=== PATIENT | male | born 1990 | race Caucasian/White ===

== ENCOUNTER 2024-06-22 14:25 | Outpatient (CLI) | payer OTHER, SELFPAY ==
--- NOTE | ~2024-06-22 | MR_ITS ---
EXAMINATION: MR knee RT wo con DATE: 06/22/2024 16:14 INDICATION: Pain in right knee. TECHNIQUE: Magnetic resonance imaging (MRI) of the right knee was performed without intravenous contr ast. Sequences included axial PD-weighted FS FSE, coronal PD-weighted FSE and PD-weighted FS FSE, sag ittal PD-weighted FSE, and sagittal T2-weighted FS FSE. COMPARISON: Right knee radiographs 12/23/2023 FINDINGS: Medial compartment: Medial meniscus is normal. There is cartilage surface irregularity of femoral condyle and tibial cond yle. Lateral compartment: Lateral meniscus is normal. There is cartilage surface irregularity of tibial condyle. Femoral cartil age is normal. Patellofemoral compartment: The patellar cartilage is normal. Trochlear cartilage is normal. Ligaments and tendons: The anterior and posterior cruciate ligaments are normal. There are changes of prior sprains of media l collateral ligament and fibular collateral ligament characterized by thickening and increased signa l intensity proximally. There is mild patellar tendinopathy. Fluid: There is a small knee joint effusion. IMPRESSION: 1. Mild chondrosis of medial and lateral compartments. 2. Small knee joint effusion. Reviewed, dictated and finalized at location A. R TESTER
--- NOTE | ~2024-06-22 | MR_ITS ---
EXAMINATION: MR shoulder RT wo con DATE: 06/22/2024 16:14 INDICATION: Right shoulder pain. TECHNIQUE: Magnetic resonance imaging (MRI) of the right shoulder was performed without intravenous c ontrast. Sequences included axial PD-weighted FS FSE, coronal oblique PD-weighted FS FSE and T2-weigh payal FS FSE, and sagittal oblique T2-weighted FS FSE and T1-weighted FSE. COMPARISON: Right shoulder radiographs 12/12/2023 FINDINGS: Coracoacromial arch: The acromion undersurface is curved in morphology (type II). The acromioclavicular joint is normal. N o significant subacromial/subdeltoid bursitis. Rotator cuff: There is mild supraspinatus and infraspinatus tendinopathy. Teres minor tendon is normal. Subscapular is tendon is normal. There is no asymmetric fatty atrophy of the rotator cuff muscle bellies. Biceps tendon and glenoid labrum: Biceps tendon is in bicipital groove. Intra-articular biceps tendon is normal. The glenoid labrum is normal. Fluid: There is a small glenohumeral joint effusion. Bones/cartilage: The glenoid cartilage is normal. Humeral head cartilage is normal. IMPRESSION: 1. Mild rotator cuff tendinopathy. No tear. 2. Small glenohumeral joint effusion. Reviewed, dictated and finalized at location A. KFAST MANAGER
== END 2024-06-22 14:26 | disposition home or self-care (01) ==
PROVIDERS: PCP Nurse Practitioner Family; Visit Provider Nurse Practitioner Family
DX: M94.261 Chondromalacia, right knee (principal); M25.461 Effusion, right knee
CPT/HCPCS: 73221; 73721

== ENCOUNTER 2024-10-25 14:59 | Outpatient (CLI) | payer OTHER, SELFPAY ==
--- OUTSIDE RECORDS SUMMARY | 2024-10-25 17:27 | XMS_ITS | Clinical Summary ---
Author Organization [facility] Address [address] [place] [address] Care Team Providers Care Agronomist Name Role Phone Eder Peres MD Primary Care Provider [phone] Allergies No known active allergies Medications ALPRAZolam 0.5 MG tablet Take 0.5 mg by mouth daily as needed. 0 Active buPROPion XL 300 MG 24 hr tablet Take 300 mg by mouth every morning. 0 Active podofilox 0.5 % external solution APPLY TO AFFECTED AREA EVERY 12 HOURS FOR 3 DAYS THEN OFF FOR 4 DAYS. DECEMBER REPEAT CYCLE 3 TIMES 0 Active propranolol 40 MG tablet Take 1 tablet (40 mg total) by mouth 2 (two) times daily. 60 tablet 5 0 Active tamsulosin (FLOMAX) 0.4 MG Cap Take 1 capsule (0.4 mg total) by mouth daily. 10 capsule 2 Active ondansetron (ZOFRAN ODT) 4 MG disintegrating tablet Take 1 tablet (4 mg total) by mouth every 8 (eight) hours as needed for Nausea. 15 tablet 2 Active Active Problems Problem Noted Date Diagnosed Date Nephrolithiasis 02/11/2022 Family History Medical History Relation Comments Heart Attack Maternal Grandfather Open Heart Maternal Grandfather Stent Cardiac Maternal Grandfather Stroke Maternal Grandfather Stent Cardiac Maternal Grandmother Valve Disease Maternal Grandmother Heart Attack Mother Stroke Mother Relation Status Comments Father Alive Maternal Grandfather Maternal Grandmother Alive Mother Alive Paternal Grandfather Paternal Grandmother Social History Tobacco Use Types Packs/Day Years Used Date Smoking Tobacco: Former Cigarettes Q uit: 2018 Smokeless Tobacco: Never Tobacco Cessation:Counseling Given: Yes Comments:currently vapes Alcohol Use Standard Drinks/Week Comments Yes 0 (1 standard drink = 0.6 oz pur e alcohol) socially AUDIT-C Answer Date Recorded Q1: How often do you have a drink containing alc ohol? Never 05/18/2020 Average Number of Drinks Not on file 020 Frequency of Binge Drinking Not on file 05/04 Sex and Gender Information Value Date Recorded Sex Assigned at Not on file Legal Sex Male 7:50 AM CDT Gender Identity Not on file Sexual Orientation Not on file Last Filed Vital Signs Vital Sign Reading Time Taken Comments Blood Pressure 138/80 02/11/2022 10:22 AM CDT Pulse 73 02/11/2022 10:22 AM CDT Temperature 35.9 C (96.7 F) 02/11/2022 10:22 AM CDT Respiratory Rate 18 02/11/2022 10:22 AM CDT Oxygen Saturation 99% 02/11/2022 10:22 AM CDT Inhaled Oxygen Concentration - - Weight 108.4 kg (239 lb) 02/11/2022 10:22 AM CDT Height 185.4 cm (6' 1 ) 02/11/2022 10:22 AM CDT Body Mass Index 31.53 02/11/2022 10:22 AM CDT Plan of Treatment Health Maintenance Due Date Last Done Comments Annual Physical 1994 Hepatitis C 2009 DTaP, Tdap and Td Vaccines (1 - Tdap) 2010 04/08/1996, 06/26/1993, 08/17/1992, Additional history exists Hepatitis B Vaccines (1 of 3 - 19+ 3-dose series) 2010 COVID-19 Vaccine ( - 2023- season) 2024 Influenza Adult (#1) 2024 HPV Vaccines Aged Out No longer eligi ble based on patient's age to complete this topic Meningococcal B Vaccine Aged Out No l onger eligible based on patient's age to complete this topic Meningococcal Vaccine Aged Out No diana zaira eligible based on patient's age to complete this topic Pneumococcal Vaccine: Pediatrics (0 to 5 Years) and At-Risk Patients (6 to 64 Years) Aged Out No longer eligible based on patient's age to complete this topic RSV Immunizations Under 20 Months Aged Out No longer eligible based on patient's age to complete this topic Insurance [employer] Care Teams Agronomist Relationship Specialty Start Date End Date Eder Peres MD [address] [place] [id number] PCP - General INTERNAL MEDICINE 04/24/20
--- OUTSIDE RECORDS SUMMARY | 2024-10-25 17:27 | XMS_ITS | Encounter Summary ---
Author Organization [facility] Address [address] [place] [address] Care Team Providers Care Television Production Clerk Name Role Phone Eder Peres MD Primary Care Provider [phone] Encounter Details Date Type Department Care Team (Late st Contact Info) Description 06/20/2021 Abstract [facility], [address] [address] [place] Social History Tobacco Use Types Packs/Day Years Used Date Smoking Tobacco: Never Assessed AUDIT-C Answer Date Recorded Q1: How often do you have a drink containing alc ohol? Never 05/18/2020 Average Number of Drinks Not on file 020 Frequency of Binge Drinking Not on file 05/04 Sex and Gender Information Value Date Recorded Sex Assigned at Not on file Legal Sex Male 7:50 AM CDT Gender Identity Not on file Sexual Orientation Not on file documented as of this encounter Plan of Treatment Not on file documented as of this encounter Procedures Procedure Name Priority Date/Time Associated Diagnosis Comments ESR (OUTSIDE LAB) Routine 06/11/2021 CBC (OUTSIDE LAB) Routine 06/11/2021 VITAMIN B-12 Routine 06/11/2021 HEMOGLOBIN, GLYCOSYLATED Routine 06/11/2021 VITAMIN D, 25 OH Routine 06/11/2021 documented in this encounter Results * VITAMIN D, 25 OH (06/11/2021) VITAMIN D 25 HYDROXY S/P/B 23 06/11/2021 us [facility] Final Result * VITAMIN B-12 (06/11/2021) Pathologist [facility] [place] VITAMIN B12 S/P/B 546 06/11/2021 us Doc [facility] Final Result * CBC (OUTSIDE LAB) (06/11/2021) Pathologist [facility] [place] WBC 7.1 HGB 14.6 HCT 44.4 PLT 223 06/11/2021 us Doc [facility]-OUTSIDE/ABSTRACTED Final Result * ESR (OUTSIDE LAB) (06/11/2021) Pathologist [facility] [place] SED RATE 2 0 - 15 mm/hr 06/11/2021 us Doc [facility]-OUTSIDE/ABSTRACTED Final Result * HEMOGLOBIN, GLYCOSYLATED (06/11/2021) Pathologist [facility] [place] HGB A1C 5.6 % 06/11/2021 us Doc [facility] Final Result documented in this encounter Visit Diagnoses Not on filedocumented in this encounter Care Teams Television Production Clerk Relationship Specialty Start Date End Date Eder Peres MD [address] [place] [id number] PCP - General INTERNAL MEDICINE 04/24/20 documented as of this encounter
== END 2024-10-25 15:00 | disposition home or self-care (01) ==
PROVIDERS: PCP Nurse Practitioner Family; Visit Provider Nurse Practitioner Family
DX: I51.7 Cardiomegaly (principal); R00.2 Palpitations
CPT/HCPCS: 93242

== ENCOUNTER 2024-10-25 15:05 | Outpatient (CLI) | payer OTHER, SELFPAY ==
--- NOTE | ~2024-10-25 | CT_ITS ---
EXAMINATION: CT brain wo con DATE: 10/25/2024 16:29 INDICATION: Headache TECHNIQUE: Computed tomography (CT) of the head was performed without intravenous contrast. Sagittal and coronal reconstructions were performed. The mA was adjusted according to patient size. Iterative reconstruction technique was employed. The dose-length product was 681.00 mGy-cm. COMPARISON: None FINDINGS: No acute intracranial hemorrhage, acute infarction or abnormal extra axial fluid collection. Ventricl es are normal and symmetric. No mass/mass effect. The orbits, paranasal sinuses and mastoid air cells are normal. IMPRESSION: 1. Normal head CT. Reviewed, dictated and finalized at location B. IMPRESSION: 1. Normal head CT.
== END 2024-10-25 15:06 | disposition home or self-care (01) ==
PROVIDERS: PCP Nurse Practitioner Family; Visit Provider Nurse Practitioner Family
DX: R51.9 Headache, unspecified (principal); R55 Syncope and collapse; H53.8 Other visual disturbances; R00.2 Palpitations; I10 Essential (primary) hypertension
CPT/HCPCS: 70450